=== PATIENT | male | born 1960 | race Caucasian/White ===

== ENCOUNTER 2016-12-13 05:17 | Inpatient (IN) | payer BC ==
[2016-11-14 11:55] VITALS: BMI 36.0
--- NOTE | 2016-11-14 12:32 | PAT Medication Instructions ---
Service Date Nov 14, 2016. Current Home Medication List Aspirin (Aspirin Ec), 81 MG PO QAM Fenofibrate (Tricor), 200 MG PO QAM Ibuprofen (Advil), 400 MG PO PRN Lisinopril (Zestril), 40 MG PO QAM Omeprazole (Prilosec), 20 MG PO QAM Medication Instructions For Your Scheduled Surgery - Check with surgeon for instructions: Ibuprofen (Advil), 400 MG PO PRN - Hold the following medications the morning of surgery: Fenofibrate (Tricor), 200 MG PO QAM Lisinopril (Zestril), 40 MG PO QAM - Take the following medications the morning of surgery with a sip of water: Omeprazole (Prilosec), 20 MG PO QAM Aspirin (Aspirin Ec), 81 MG PO QAM (okay to continue per surgeon) If you have any questions please call us at [phone] or [phone] or [phone]
--- NOTE | 2016-11-14 13:12 | DIAGNOSTIC IMAGING REPORT ---
TWO VIEW CHEST CLINICAL HISTORY: Preoperative examination. FINDINGS: PA and lateral chest radiographs are compared to study dated 09/18/2006. The cardiomediastinal silhouette is unremarkable. The lungs and pleural spaces are clear. There is no pneumothorax. The bony thorax appears intact. IMPRESSION: No active disease in the chest. Electronically signed by: Javier Houser M.D. 11/14/2016 1:11 PM Dictated Date/Time: 11/14/2016 1:10 PM
[2016-11-14 13:31] LABS: BASO % 0.1 %; BASO ABS # 0.01 K/uL (0-0.2); COMPLETE YES; EOS % 1.3 %; HEMATOCRIT 38.9 % (42-52); IG% 0.1 %; LYMPH % 25.7 %; LYMPH ABS # 1.83 K/uL (1.2-3.4); MEAN CORPUSCULAR HEMOGLOBIN 30.4 pg (25-34); MEAN PLATELET VOLUME 10.1 fL (7.4-10.4); MONO % 4.9 %; NEUT % 67.9 %; PLATELET COUNT 348 K/uL (130-400); RED BLOOD COUNT 4.47 M/uL (4.7-6.1); WHITE BLOOD COUNT 7.12 K/uL (4.8-10.8)
[2016-11-14 13:33] LABS: URINE APPEARANCE CLEAR (CLEAR); URINE BILIRUBIN NEG (NEG); URINE COLOR YELLOW; URINE NITRITE NEG (NEG); URINE SPECIFIC GRAVITY 1.027 (1.000-1.030); UROBILINOGEN NEG (NEG)
[2016-11-14 13:38] LABS: MANUAL MICROSCOPIC REQUIRED? NO; REVIEW REQ? NO
[2016-11-14 13:46] LABS: BUN/CREATININE RATIO 14.5 (10-20); CALCIUM 9.8 mg/dl (8.5-10.1); CREATININE 1.1 mg/dl (0.60-1.40); POTASSIUM 4.5 mmol/L (3.5-5.1)
[2016-11-14 13:48] LABS: PARTIAL THROMBOPLASTIN RATIO 1.1; PROTHROMBIN TIME (PATIENT) 10.4 SECONDS (9.0-12.0)
[2016-11-14 13:53] LABS: ESTIMATED AVERAGE GLUCOSE 131 mg/dl; HA1C FLAG Normal (Normal)
--- NOTE | 2016-12-12 09:59 | HISTORY & PHYSICAL EXAMINATION ---
DATE OF ADMISSION: 12/13/2016 CHIEF COMPLAINT: Right knee pain. HISTORY OF PRESENT ILLNESS: The patient is a 56-year-old gentleman with known osteoarthritis about his right knee. He had a recent knee arthroscopy which showed advanced degenerative changes particularly about the patellofemoral joint where he had grade 4 osteoarthritis. He has moderate degenerative changes about the tibiofemoral joint as well. He had a recent corticosteroid injection with short term relief. Due to ongoing pain and disability, he now desires to proceed with right total knee arthroplasty. PAST MEDICAL HISTORY: Hypertension, hypercholesterolemia, sleep apnea with CPAP use, osteoarthritis, acid reflux, obesity. PAST SURGICAL HISTORY: Knee arthroscopy as above, hip replacement approximately 10 years ago. MEDICATIONS: Lisinopril 40 mg daily, omeprazole 20 mg daily, aspirin 81 mg daily, fenofibrate 200 mg daily. ALLERGIES: No known drug allergies. SOCIAL HISTORY AND REVIEW OF SYSTEMS: Noncontributory. PHYSICAL EXAMINATION: GENERAL: Well-nourished, well-developed male who appears his stated age. HEENT: Normocephalic, atraumatic, extraocular movements intact, oropharynx pink and moist. NECK: Supple without adenopathy. LUNGS: Clear to auscultation bilaterally. HEART: Regular rate and rhythm. ABDOMEN: Soft, nontender, nondistended, obese. EXTREMITIES: The upper extremity within normal limits. The right knee has a neutral alignment. He has range of motion from 0 to 125 degrees. He has moderate crepitus with range of motion. X-RAYS: X-rays were reviewed. He has moderate degenerative change about the tibiofemoral joint with narrowing of the joint space. He has severe osteoarthritis about the patellofemoral joint with complete loss of the joint space and osteophyte formation. ASSESSMENT: Right knee degenerative joint disease. PLAN: Risks versus benefits were discussed. Consent was obtained. The patient's primary care physician is Dr. Miller from [facility]. We will proceed with right total knee arthroplasty upon preoperative workup and medical clearance.
[~2016-12-13] VITALS: Ht 180.3 cm; Wt 119.6 kg
[2016-12-13] VITALS (10 sets, daily range): BP systolic 118–152; BP diastolic 68–93; PULSE 66–78; TEMP 36.4–36.8; O2SAT 95–97; Ht 180.3 cm; Wt 119.6 kg
[~2016-12-13 05:17] MED LIST: ASPI81TA28 PO; FENO200C6 PO; IBUP-1050 PO; LISI40TA PO; PRLSR20 PO
[2016-12-13] MEDS ORDERED: CEFAZOLIN 2000MG IV PUSH 10 ML IV SCH (06:00)
[2016-12-13] MEDS ORDERED: LACTATED RINGER'S 1000ML 500 ML IV ONE (06:00)
[2016-12-13] MEDS ORDERED: METOCLOPRAMIDE HCL 10 MG TAB PO SCH (06:00)
[2016-12-13] MEDS ORDERED: GABAPENTIN 300 MG CAP PO SCH (06:00)
[2016-12-13] MEDS ORDERED: LACTATED RINGER'S 1000ML 1,000 ML IV SCH (06:00)
[2016-12-13] MEDS ORDERED: CeleBREX 200 MG CAP PO SCH (06:00)
[2016-12-13] MEDS ORDERED: FAMOTIDINE 20 MG TAB PO SCH (06:00)
[2016-12-13] MEDS ORDERED: DEXAMETHASONE 4 MG TAB PO SCH (06:00)
[2016-12-13] MEDS ORDERED: LACTATED RINGER'S 1000ML IV SCH (06:00)
[2016-12-13] MEDS ORDERED: ROPIVACAINE 5MG/ML 30 ML 150 MG, BUPIVACAINE/EPINEPHR 0.5% MPF 30 ML, KETOROLAC TROMETH... INFIL SCH ×7 (06:00)
[2016-12-13] MEDS ORDERED: ACETAMINOPHEN 500 MG TAB PO SCH (06:00)
[2016-12-13] MEDS ORDERED: BUPIVACAINE 0.5 % 5 MG/1 ML PF 10ML VIAL ONE (06:20)
[2016-12-13] MEDS ORDERED: BUPIVACAINE 0.25% 30 ML VIAL ONE (06:20)
[2016-12-13] MEDS ORDERED: POVIDONE-IODINE OP SOLN 30 ML BTL ONE (06:58)
[2016-12-13] MEDS ORDERED: BACITRACIN 50000 UNIT VIAL ONE (06:58)
[2016-12-13] MEDS ORDERED: ORTHO JOINT ANESTHETIC ONE (06:58)
[2016-12-13] MEDS ORDERED: MIDAZOLAM HCL 1 MG/ML 2ML VIAL ONE ×3 (07:04→09:00)
[2016-12-13] MEDS ORDERED: FENTANYL CITRATE INJ 50 MCG/1 ML 2 ML VIAL ONE (07:04)
--- NOTE | 2016-12-13 07:11 | History & Physical Bridge Note ---
H&P Re-Evaluation Bridge Note: I have examined the patient, reviewed the History & Physical and in the interval since the performance of the History & Physical I have noted the following changes of clinical significance: No changes noted
[2016-12-13] MEDS: TRANEXAMIC ACID INJ 1,000 MG in SODIUM CHLORIDE 0.9% 100ML 100 ML IV SCH ×2 (07:29→11:27)
[2016-12-13] MEDS ORDERED: ONDANSETRON INJ 2 MG/ML 2 ML VIAL IV PRN ×2 (08:30→09:45)
[2016-12-13] MEDS ORDERED: EpHEDrine SULFATE INJ 50 MG/ML AMP IV PRN (08:30)
[2016-12-13] MEDS ORDERED: HYDROmorphone INJ 2 MG/ML SYR/VIAL IV PRN (08:30)
[2016-12-13] MEDS ORDERED: PHENYLEPHRINE 100MCG/ML 5ML SYR IV PRN (08:30)
[2016-12-13] MEDS ORDERED: ATROPINE SULFATE 0.1 MG/ML 5ML SYR IV PRN (08:30)
[2016-12-13] MEDS ORDERED: KETOROLAC TROMETHAMINE 30 MG/ML VIAL IV. PRN (08:30)
[2016-12-13] MEDS ORDERED: PROPOFOL IV EMULSION 10 MG/ML 20 ML VIAL IV ONE (08:50)
--- NOTE | 2016-12-13 09:10 | [facility] Post Operative Brief Note ---
Immediate Operative Summary Operative Date Dec 13, 2016. Pre-Operative Diagnosis Right knee degenerative joint disease Post-Operative Diagnosis Right knee degenerative joint disease Procedure(s) Performed Right Total Knee Arthroplasty Surgeon Dr. Gonzales Flyer Maker Surgeon(s) Néstor White PA-C Estimated Blood Loss 10cc Findings oa Specimens A: Right knee bone and tissue Complication(s) None Disposition Recovery Room / PACU
--- NOTE | 2016-12-13 09:31 | OPERATIVE REPORT ---
DATE OF OPERATION: 12/13/2016 PREOPERATIVE DIAGNOSIS: Osteoarthritis right knee. POSTOPERATIVE DIAGNOSIS: Osteoarthritis right knee. PROCEDURE: Right total knee arthroplasty. SURGEON: Dr. Gonzales. FIELD OPERATIONS MANAGER: SONNY Clemens. ANESTHESIA: Spinal. COMPLICATIONS: None. OPERATION AND FINDINGS: Following induction of spinal anesthesia, the patient's right leg was prepped and draped in the usual sterile manner. Limb was exsanguinated with an Esmarch bandage and tourniquet was inflated to 350 mmHg. A longitudinal incision was made anteriorly. Subcutaneous tissue was sharply dissected. Electrocautery was used for hemostasis. Prepatellar bursa was incised and median parapatellar incision was performed. Patella was everted and the knee was flexed. Fat pad was removed to aid in visualization and the anterior and posterior cruciate ligaments were removed. The medial face of the tibia was cleared of soft tissue first with a Bovie and a Carranza elevator. This tissue was retracted posteriorly using a blunt Hohmann. A Ortiz retractor was used to expose the synovium above on the anterior aspect of the femur and this was removed down to bone. The PSI guide was placed on the distal femur and two pins were placed anteriorly and kept in position and two additional pins were placed distally and removed. The distal femoral cutting block was placed in position and the distal femoral cut was used in the +0 setting. Next, the cutting block was removed and the femoral size 5 block was placed in the distal end of the femur. Care was taken to ensure appropriate external rotation and feeler gauge was used to ensure no notching would occur. The femoral block was centered on the distal femur and in the medial and lateral direction and was fixed using two bone screws. The gold pins were then removed. The oscillating saw was used to create the bone cuts and the distal femoral cutting block was removed and the reciprocating saw was used to further trim the femoral cuts as well as a deep in the area for the trochlear groove. Next, posterior condyle remnants were removed. Following this, a meniscal clamp and knife were utilized to remove the anterior portion of both medial and lateral meniscus. The proximal tibia PSI guide was placed into position and the proximal tibial cutting guide was screwed into position. The extra medullary alignment guide was utilized to ensure appropriate alignment. The proximal tibia was cut and the proximal tibial cutting block was removed and this bone fragment was removed. The appropriate guide was used to perform the notch cut on the distal femur and a lamina fire dispatcher and a cochlear knife were utilized to finish both medial and lateral meniscectomies to remove any remnants of the posterior or anterior cruciate ligaments. Following this, the distal femoral component was impacted into position and blunt Jacqueline was used to sublux the tibia anteriorly. The proximal tibia was sized and a size 5 tibial tray was chosen as the size to be used. This was put into position and appropriate external rotation and a double check with extramedullary alignment guide was performed. The canal for the tibial stem was prepared first with a 17 mm drill and then the punch and a mallet and the trial tibial poly was placed. A tibial poly 13 was chosen the size to be used. It was brought to extension and the patella was prepared with the patellar reamer. A patella size 39 component was chosen the size to be used. The trial component was placed and knee was taken through a full range of motion and there was found to be no lateral subluxation of the tibia. No lateral release was required. The trials were all removed. The final components were obtained and assembled. Cement was mixed. The knee was thoroughly irrigated and the ortho mix was injected about the knee joint. The final components were cemented into position. After thoroughly suctioning and drying the bone ends, all excess cement was removed. The knee was held in extension while the cement hardened. The wound was irrigated and closed over a Hemovac drain. #1 Vicryl was used to close the extensor mechanism. Subcutaneous tissues closed using 0 Dexon. Skin was closed with nicolette. Sterile dressing of Adaptic, 4 x 4's, sterile Webril, and Sebas was applied. The patient tolerated the procedure well and went to the Recovery Room stable. Due to the complex nature of the procedure, the entire surgery was performed with the operational assistance of Néstor White PA-C. The veterinary technician assistant, under direct supervision, was involved in the actual performance of all aspects of the surgical procedure including hemostasis, tissue retraction and incision, instrument management, patient positioning, and wound closure. I attest to the content of the Intraoperative Record and any orders documented therein. Any exception s are noted below.
[2016-12-13] MEDS ORDERED: MoRPHine SULFATE 2 MG/ML CARP IV PRN ×2 (09:45→11:30)
[2016-12-13] MEDS ORDERED: METOCLOPRAMIDE HCL INJ 5 MG/ML 2 ML VIAL IV PRN (09:45)
[2016-12-13] MEDS ORDERED: ALUMINUM/MAGNESIUM/SIMETH (MAALOX MAX) 30 ML UDC PO PRN (09:45)
[2016-12-13] MEDS ORDERED: TAMSULOSIN HCL 0.4 MG CAP PO PRN (09:45)
[2016-12-13] MEDS ORDERED: ZOLPIDEM TARTRATE 5 MG TAB PO PRN (09:45)
[2016-12-13] MEDS ORDERED: MAGNESIUM HYDROXIDE SUSP 30 ML UDC PO PRN (09:45)
--- NOTE | 2016-12-13 10:48 | Anesthesiology Progress Note ---
Anesthesia Post Op Note Date & Time Dec 13, 2016 at 10:48 Vital Signs Pain Intensity: 0 Vital Signs Past 12 Hours Date Time Temp Pulse Resp B/P (MAP) Pulse Ox O2 Delivery O2 Flow Rate FiO2 12/13/16 10:40 67 13 112/60 100 Nasal Cannula 2 12/13/16 10:30 71 18 134/83 99 Nasal Cannula 2 12/13/16 10:20 74 17 132/75 96 Nasal Cannula 2 12/13/16 10:10 74 24 114/57 97 Nasal Cannula 2 12/13/16 10:00 87 20 122/86 98 Nasal Cannula 2 12/13/16 09:50 88 21 129/57 95 Nasal Cannula 2 12/13/16 09:44 36.2 83 12 128/71 97 Nasal Cannula 2 12/13/16 05:42 36.5 70 20 139/91 97 Room Air Notes Mental Status: alert / awake / arousable, participated in evaluation Pt Amnestic to Procedure: Yes Nausea / Vomiting: adequately controlled Pain: adequately controlled Airway Patency, RR, SpO2: stable & adequate BP & HR: stable & adequate Hydration State: stable & adequate Anesthetic Complications: no major complications apparent
--- NOTE | 2016-12-13 10:52 | DIAGNOSTIC IMAGING REPORT ---
R KNEE 1 OR 2 VIEWS ROUTINE HISTORY: 56 years-old Male right TKA right total knee arthroplasty with history of right knee osteoarthritis COMPARISON: None available TECHNIQUE: 2 views of the right knee FINDINGS: Postoperative changes compatible with recent total knee arthroplasty and patellar resurfacing. Alignment is satisfactory without postsurgical complication identified. Surgical drain is in place. Expected postsurgical soft tissue swelling and deep tissue air. IMPRESSION: Status post right knee total joint arthroplasty and patellar resurfacing without complication identified. The above report was generated using voice recognition software. It may contain grammatical, syntax or spelling errors. Electronically signed by: Fran Boogie M.D. 12/13/2016 10:51 AM Dictated Date/Time: 12/13/2016 10:45 AM
[2016-12-13] MEDS ORDERED: MoRPHine SULFATE 10 MG/ML CARP/VIAL IV PRN (11:30)
[2016-12-13] MEDS ORDERED: MoRPHine SULFATE 4 MG/ML 1 ML CARP\\VIAL IV PRN (11:30)
[2016-12-13] MEDS: KETOROLAC TROMETHAMINE 30 MG/ML VIAL IV. SCH ×2 (12:14→18:21)
[2016-12-13] MEDS: D5W AND 1/2NSS + 20MEQ KCL 1,000 ML IV SCH ×2 (12:14→22:13)
[2016-12-13] MEDS: FERROUS GLUCONATE 324 MG TAB PO SCH ×2 (12:15→18:21)
[2016-12-13] MEDS: ACETAMINOPHEN 500 MG TAB PO SCH ×2 (13:40→22:13)
[2016-12-13] MEDS ORDERED: CEFAZOLIN IV 2,000 MG in SYRINGE 0 ML IV SCH (16:00)
[2016-12-13] MEDS ORDERED: TRICOR~ORDER AWAITING ACTION SCH (16:00)
[2016-12-13] MEDS: ASPIRIN 81 MG ECTAB PO SCH (20:50)
[2016-12-13] MEDS: DOCUSATE SODIUM 100 MG CAP PO SCH (20:50)
[2016-12-14] MEDS: KETOROLAC TROMETHAMINE 30 MG/ML VIAL IV. SCH ×2 (00:06→06:20)
[2016-12-14 04:06] VITALS: BP 112/69; PULSE 84; TEMP 36.9; O2SAT 96
[2016-12-14] MEDS: ACETAMINOPHEN 500 MG TAB PO SCH (06:20)
[2016-12-14 06:47] LABS: HEMATOCRIT 32.3 % (42-52); MEAN CELL VOLUME 86.1 fL (80-100); MEAN CORPUSCULAR HEMOGLOBIN 30.4 pg (25-34); MEAN CORPUSCULAR HGB CONC 35.3 g/dl (32-36); MEAN PLATELET VOLUME 9.5 fL (7.4-10.4); PLATELET COUNT 240 K/uL (130-400); RED BLOOD COUNT 3.75 M/uL (4.7-6.1); WHITE BLOOD COUNT 12.17 K/uL (4.8-10.8)
[2016-12-14 07:09] VITALS: BP 129/78; PULSE 75; O2SAT 95
[2016-12-14 07:12] LABS: BUN/CREATININE RATIO 16.2 (10-20); CALCIUM 8.5 mg/dl (8.5-10.1); CREATININE 1.2 mg/dl (0.60-1.40); POTASSIUM 4.1 mmol/L (3.5-5.1)
[2016-12-14] MEDS ORDERED: DEXAMETHASONE INJ 10 MG in SYRINGE 0 ML IV ONE (07:30)
--- NOTE | 2016-12-14 07:59 | Orthopedic Progress Note ---
Orthopedic Progress Note Date of Service Dec 14, 2016. Subjective Post OP Day: 1 Reports: feeling well Objective N/V intact, dressing C/D/I (Hemovac in place), toes mobile Date Time Temp Pulse Resp B/P (MAP) Pulse Ox O2 Delivery O2 Flow Rate FiO2 12/14/16 07:09 75 18 129/78 (95) 95 Room Air 12/14/16 04:06 36.9 84 16 112/69 (83) 96 Room Air 12/14/16 00:15 Room Air 12/13/16 23:53 36.6 76 16 118/68 (85) 96 Room Air 12/13/16 19:30 36.7 78 20 118/76 (90) 96 Room Air 12/13/16 16:30 95 Nasal Cannula 2.0 12/13/16 15:30 36.8 73 20 152/93 (112) 95 Nasal Cannula 12/13/16 14:00 36.6 72 19 134/85 (101) 97 Nasal Cannula 2.0 12/13/16 13:00 77 20 136/90 (105) 95 Nasal Cannula 2.0 12/13/16 11:57 36.4 67 19 126/83 (97) 96 Nasal Cannula 2.0 12/13/16 11:33 36.4 66 16 129/82 (98) 97 Nasal Cannula 2.0 12/13/16 11:05 36.6 76 16 129/80 (96) 95 Nasal Cannula 2.0 12/13/16 11:05 Nasal Cannula 2.0 12/13/16 11:05 Nasal Cannula 2.0 12/13/16 10:50 36.2 67 15 110/61 97 Nasal Cannula 2 12/13/16 10:40 67 13 112/60 100 Nasal Cannula 2 12/13/16 10:30 71 18 134/83 99 Nasal Cannula 2 12/13/16 10:20 74 17 132/75 96 Nasal Cannula 2 12/13/16 10:10 74 24 114/57 97 Nasal Cannula 2 12/13/16 10:00 87 20 122/86 98 Nasal Cannula 2 12/13/16 09:50 88 21 129/57 95 Nasal Cannula 2 12/13/16 09:44 36.2 83 12 128/71 97 Nasal Cannula 2 Laboratory Results 24 Hours: Test 12/14/16 06:28 Hematocrit 32.3 % Hemoglobin 11.4 g/dL Assessment & Plan Assessment: 56 yo male stable POD #1 s/p right TKA Plan: 1. DVT prophylaxis- ASA, SCDs 2. PT/OT 3. D/C planning- home w/ OPPT
[2016-12-14] MEDS ORDERED: ACET-24 PO (08:02)
[2016-12-14] MEDS ORDERED: ASPEC81 PO (08:02)
[2016-12-14] MEDS ORDERED: CLB200 PO (08:02)
[2016-12-14] MEDS ORDERED: RXC5 PO (08:02)
[2016-12-14] MEDS ORDERED: ONDA8TAB12 PO (08:02)
--- NOTE | 2016-12-14 08:04 | Discharge Instructions ---
Discharge Instructions Date of Service Dec 14, 2016. Admission Reason for Admission: Right Knee Osteoarthritis Discharge Discharge Diagnosis / Problem: Right knee arthritis Discharge Goals Goal(s): Decrease discomfort, Improve function Activity Recommendations Activity Limitations: as noted below Weightbearing Status: Right weightbearing (as tolerated) . Instructions / Follow-Up Instructions / Follow-Up ACTIVITY RECOMMENDATIONS: SELF CARE INSTRUCTIONS AFTER TOTAL KNEE REPLACEMENT A. You may need to continue a physical therapy program after discharge from the hospital. There are several options available to you. Your doctor will assist you in selecting the best one for you. 1. An out-patient facility 2 to 3 times a week for therapy or home therapy. 2. Continue working on all exercises taught to you in the hospital. Your goals should be to increase bending of your knee to 90 degrees and beyond and to fully straighten your knee. B. You may progress at your own pace from walking with a walker or crutches to a cane; then to no assistive devices. C. Make walking a part of your daily routine. Be up as much as comfortable with rest periods throughout the day. Rest with leg elevation is very important. Use the ice wrap frequently for the first 3-4 weeks. D. There are no restrictions on activities. You may ride in a car, shop, participate in ostrich farm worker and all social activities. E. Wear the long elastic stockings (MELLISA hose) 20 hours a day for 2 weeks after surgery. They can be removed several times a day for laundering and for a bath. F. You may shower, no tub baths until cleared by your doctor. SPECIAL CARE INSTRUCTIONS: VERY IMPORTANT TO READ AND REVIEW A. There are a few signs you need to watch for after you are home. Call [facility] if you notice any of the followin. Increased severe knee pain. Some pain is expected especially when you exercise. 2. Increased swelling in your leg or knee; pain or swelling of the calf muscle in either lower leg. 3. Any fluid drainage from the incision. 4. Shortness of breath or chest pain. B. Please call [facility] at if you have any concerns or questions about your operation or recovery. The doctor or his nurse will return your call promptly. C. You must take antibiotics before dental work, bladder, bowel or other surgery. Your doctor will provide you with a permanent care to carry describing this precaution. IMPORTANT: * REMEMBER TO TAKE ASPIRIN, 81 MG, TWICE DAILY FOR 4 WEEKS UNLESS OTHERWISE DIRECTED. THIS IS YOUR BLOOD THINNER. * HIGH RISK PATIENTS MAY BE PRESCRIBED A STRONGER BLOOD THINNER. THIS WILL BE PROVIDED AT DISCHARGE. * CALL IF INCREASED PAIN, REDNESS, DRAINAGE OR FEVER GREATER THAT 101. * WEAR MELLISA HOSE 20 HOURS PER DAY FOR 2 WEEKS. FOLLOW UP VISIT: If appointment is not already scheduled: Please call [facility] to make a follow-up appointment for 2 weeks after your surgery at . Current Hospital Diet Patient's current hospital diet: Regular Diet Discharge Diet Recommended Diet: Regular Diet Procedures Procedures Performed: Right Total Knee Arthroplasty Pending Studies Studies pending at discharge: no Laboratory Results Hemoglobin A1c Test 11/14/16 12:39 Range/Units Estimated Average Glucose 131 mg/dl Hemoglobin A1c 6.2 H 4.5-5.6 % Medical Emergencies . Who to Call and When: Medical Emergencies: If at any time you feel your situation is an emergency, please call 911 immediately. . Non-Emergent Contact Non-Emergency issues call your: Surgeon Call Non-Emergent contact if: temperature is above 101.5, your pain is not controlled, wound has increased drainage, wound has increased redness . "Provider Documentation" section prepared by Raghav Fagan PA-C. . VTE Core Measure Inpt VTE Proph given/why not?: Other Anticoagulation (ASA), T.E.D. Stockings, SCD's [place] Drug Monitoring Program Search Results: patient reviewed within database, no issues identified
[2016-12-14] MEDS: FERROUS GLUCONATE 324 MG TAB PO SCH (08:27)
[2016-12-14] MEDS: DOCUSATE SODIUM 100 MG CAP PO SCH (08:28)
[2016-12-14] MEDS: ASPIRIN 81 MG ECTAB PO SCH (08:28)
[2016-12-14] MEDS: OXYCODONE HCL IR 5 MG TAB (IMMEDIATE RELEASE) PO PRN ×2 (08:36→11:30)
--- NOTE | 2016-12-14 08:38 | Anesthesiology Progress Note ---
Anesthesia Post Op Note Date & Time Dec 14, 2016 at 08:37 Vital Signs Pain Intensity: 0.0 Vital Signs Past 12 Hours Date Time Temp Pulse Resp B/P (MAP) Pulse Ox O2 Delivery O2 Flow Rate FiO2 12/14/16 07:09 75 18 129/78 (95) 95 Room Air 12/14/16 04:06 36.9 84 16 112/69 (83) 96 Room Air 12/14/16 00:15 Room Air 12/13/16 23:53 36.6 76 16 118/68 (85) 96 Room Air Notes Mental Status: alert / awake / arousable, participated in evaluation Pt Amnestic to Procedure: Yes Nausea / Vomiting: adequately controlled Pain: adequately controlled Airway Patency, RR, SpO2: stable & adequate BP & HR: stable & adequate Hydration State: stable & adequate Neuraxial Anesthesia: sensory block resolved Anesthetic Complications: no major complications apparent
[2016-12-14] MEDS ORDERED: MULTIVITAMIN TAB PO SCH (09:00)
[2016-12-14] MEDS ORDERED: PANTOprazole SOD 40 MG TAB PO SCH (09:00)
[2016-12-14] MEDS ORDERED: FENOFIBRATE MICRONIZED 200 MG PO SCH (09:00)
[2016-12-14] MEDS ORDERED: LISINOPRIL 40 MG TAB PO SCH (09:00)
[2016-12-14 11:36] VITALS: BP 129/78; PULSE 75; TEMP 36.9; O2SAT 95
[2016-12-14] MEDS ORDERED: CeleBREX 200 MG CAP PO SCH (21:00)
--- NOTE | 2016-12-20 16:53 | DISCHARGE SUMMARY ---
DISCHARGE DIAGNOSIS: Degenerative joint disease, right knee. SECONDARY DIAGNOSES: Hypertension, hypercholesterolemia, sleep apnea with use of CPAP, osteoarthritis, disease, obesity. CONSULTS: None. COMPLICATIONS: None. PROCEDURES: Right total knee arthroplasty performed by Dr. Gonzales on 12/13/2016. BRIEF HISTORY: As dictated in history and physical. HOSPITAL SUMMARY: The patient was admitted on the above date and had the above known surgery performed which he tolerated well. On the first postoperative day, the patient was feeling well. Neurovascularly intact. Dressings were clean, dry and intact. Toes were mobile. Vital signs were stable. He was afebrile. Hemoglobin was 11.4 and he was started on physical therapy protocol and continued on DVT prophylaxis and pain management. He was progressing with his physical therapy and remaining stable and it was felt he could be discharged to home with outpatient physical therapy planned. He was thusly discharged to home on 12/14/2016. For further review, please see chart. LABORATORY AND X-RAY DATA: As per chart. DISCHARGE INSTRUCTIONS: The patient was discharged to home in satisfactory condition on 12/14/2016. DIET: Regular. ACTIVITY: Weightbearing as tolerated right lower extremity. Follow TK instruction sheets and special care instructions as noted. Follow up with Dr. Gonzales in 2 weeks. The patient to call for appointment if one has not been made for you. DISCHARGE MEDICATIONS: Acetaminophen 1000 mg p.o. q. 8 hours for 14 days, aspirin 81 mg p.o. b.i.d. for 30 days, Celebrex 200 mg p.o. b.i.d. for 30 days, Zofran 8 mg p.o. q. 8 hours p.r.n. nausea, oxycodone 5-10 mg p.o. q. 4 hours p.r.n. Resume home meds as listed. After 30 days, resume once daily dosing of aspirin and stop ibuprofen.
== END 2016-12-14 12:10 | disposition home health service (06) | DRG 470 ==
LOC: C.ACU 05:17 → C.MSN 09:45 → ENRESERV 10:36
PROC: 0SRC0J9 Replacement of Right Knee Joint with Synthetic Substitute, Cemented, Open Approach (ICD-10-PCS; principal; 2016-12-13 07:45)
DX: M17.11 Unilateral primary osteoarthritis, right knee (principal); I10 Essential (primary) hypertension; E78.5 Hyperlipidemia, unspecified; G47.30 Sleep apnea, unspecified; Z96.649 Presence of unspecified artificial hip joint